=== PATIENT | female | born 1985 | race Caucasian/White ===

== ENCOUNTER 2020-05-18 08:46 | Emergency (ER) | payer MEDICAID ==
[~2020-05-18] VITALS: Ht 167.6 cm; Wt 82.0 kg
[2020-05-18] MEDS ORDERED: MORPHINE SULFATE 4 MG/ML CPJ (NOT FOR IM USE) IV NR ×2 (09:45→11:15)
[2020-05-18] MEDS ORDERED: KETOROLAC 15MG/ML VIAL IV NR (09:45)
[2020-05-18] MEDS ORDERED: SODIUM CHLORIDE 0.9% 1,000 ML IV ONE (09:45)
[2020-05-18] MEDS ORDERED: ONDANSETRON HCL 4MG/2ML INJ IV NR (09:45)
[2020-05-18] MEDS ORDERED: DIPHENHYDRAMINE 25MG CAPSULE PO NR (09:45)
[2020-05-18 10:53] LABS: CHLORIDE 102 mEq/L (98-107)
[2020-05-18 10:54] LABS: BASOPHILS % 0.4 % (0.0-2.0); EOSINOPHILS % 1.4 % (0.0-5.0); HEMATOCRIT. 37.8 % (36.0-48.0); HEMOGLOBIN. 11.9 g/dL (12.0-16.0); LYMPHOCYTES % 17.2 % (20.0-50.0); MEAN CORPUSCULAR VOLUME 76.3 fL (81.0-99.0); MEAN PLATELET VOLUME 9.3 fl (7.4-10.4); MONOCYTES % 8.9 % (2.0-8.0); NEUTROPHILS % 72.1 % (40.0-76.0); PLATELET 144 x1000/uL (130-400); RED BLOOD CELL COUNT 4.95 mill/uL (4.2-5.4)
[2020-05-18 11:08] LABS: HCG SCREEN NEGATIVE
[2020-05-18] MEDS ORDERED: POTASSIUM CHLORIDE 20MEQ TABLET SR PO NR (11:15)
[2020-05-18 12:46] VITALS: BP 134/61
[2020-05-18 14:02] LABS: PLATELET ESTIMATE NORMAL
== END 2020-05-18 12:51 | disposition home or self-care (01) ==
LOC: ER 08:46
DX: D57.1 Sickle-cell disease without crisis (principal); E87.6 Hypokalemia
CPT/HCPCS: 36415; 70450; 71045; 80053; 83605; 83880; 84484; 84703; 85025; 85044; 85379; 86850; 86900; 86901; 87040; 93005; 96361; 96374; 96375; 96376; 99285; J1885; J2270; J2405; Q0163